=== PATIENT | male | born 1940 | race Caucasian/White ===

== ENCOUNTER 2021-12-06 05:36 | Day surgery (SDC) | payer OTHER, MEDICARE ==
[2021-12-04 09:16] VITALS: BMI 37.5
[~2021-12-06 05:36] MED LIST: ACETAMINOPHEN 325 MG TABLET (FP) PO PRN; CYCLOPENTOLATE HCL 1% OPHTH SOLN 2 ML BOTTLE OP SCH; KETOROLAC TROMETHAMINE 0.5% EYE DROP 1 DROP DROPS OP SCH; OFLOXACIN 0.3% OPHTHALMIC SOLUTION 5 ML BOTTLE OP SCH; PHENYLEPHRINE 2.5% OPHTH SOLN 15 ML BOTTLE OP SCH; TROPICAMIDE 1% OPHTH SOLN 15 ML BOTTLE OP SCH
[2021-12-06] MEDS ORDERED: TROPICAMIDE 1% OPHTH SOLN 15 ML BOTTLE ONE (06:20)
[2021-12-06] MEDS ORDERED: OFLOXACIN 0.3% OPHTHALMIC SOLUTION 5 ML BOTTLE ONE (06:20)
[2021-12-06] MEDS ORDERED: KETOROLAC TROMETHAMINE 0.5% EYE DROP 1 DROP DROPS ONE (06:20)
[2021-12-06] MEDS ORDERED: CYCLOPENTOLATE HCL 1% OPHTH SOLN 2 ML BOTTLE ONE (06:20)
[2021-12-06] MEDS ORDERED: PHENYLEPHRINE 2.5% OPTHALMIC DROP BOTTLE ONE (06:21)
[2021-12-06] MEDS ORDERED: CYCLOPENTOLATE HCL 1% OPHTH SOLN 2 ML BOTTLE OS ONE ×3 (06:35→06:55)
[2021-12-06] MEDS ORDERED: TROPICAMIDE 1% OPHTH SOLN 15 ML BOTTLE OS ONE ×3 (06:35→06:55)
[2021-12-06] MEDS ORDERED: KETOROLAC TROMETHAMINE 0.5% EYE DROP 1 DROP DROPS OS ONE ×3 (06:35→06:55)
[2021-12-06] MEDS ORDERED: OFLOXACIN 0.3% OPHTHALMIC SOLUTION 5 ML BOTTLE OS ONE ×3 (06:35→06:55)
[2021-12-06] MEDS ORDERED: PHENYLEPHRINE 2.5% OPHTH SOLN 15 ML BOTTLE OS ONE ×3 (06:35→06:55)
[2021-12-06] MEDS ORDERED: CHONDROITIN SU A/HYALUR SOD 1 KIT ONE (07:11)
[2021-12-06] MEDS ORDERED: EPINEPHrine/PF 1 MG/1 ML (1:1,000) AMPULE ONE (07:19)
[2021-12-06] MEDS ORDERED: VANCOMYCIN 500 MG VIAL (RESTRICTED TO ID ONLY) ONE (07:20)
[2021-12-06] MEDS ORDERED: LIDOCAINE HCL/PF 1% SDV 5ML VIAL ONE (07:20)
[2021-12-06] MEDS ORDERED: POVIDONE-IODINE 5% OPHTHALMIC PREP 30 ML SOLUTION ONE (07:21)
[2021-12-06] MEDS ORDERED: BSS (NA/CA/MG/K) BALANCED SALT SOLUTION OPHTH SOLN 15 ML BOTTLE ONE (07:21)
[2021-12-06] MEDS ORDERED: TETRACAINE 0.5% OPHTH SOLN 2 ML BOTTLE ONE (07:21)
[2021-12-06] MEDS ORDERED: MIDAZOLAM HCL 2 MG/2 ML SINGLE DOSE VIAL ONE (07:33)
[2021-12-06] MEDS ORDERED: TETRACAINE 0.5% OPHTH SOLN 2 ML BOTTLE OS ONE (08:06)
[2021-12-06] MEDS ORDERED: POVIDONE-IODINE 5% OPHTHALMIC PREP 30 ML SOLUTION OS ONE (08:07)
[2021-12-06] MEDS ORDERED: BSS (NA/CA/MG/K) BALANCED SALT SOLUTION OPHTH SOLN 15 ML BOTTLE OS ONE (08:13)
[2021-12-06] MEDS ORDERED: LIDOCAINE HCL 1% PRESERVATIVE FREE - 30ML VIAL IO ONE (08:20)
[2021-12-06] MEDS ORDERED: CHONDROITIN SU A/HYALUR SOD 1 KIT IO ONE (08:21)
[2021-12-06] MEDS ORDERED: EPINEPHrine/PF 1 MG/1 ML (1:1,000) AMPULE SQ ONE (08:23)
[2021-12-06 14:32] VITALS: TEMP 97
[2021-12-06 14:35] VITALS: BP 144/84; PULSE 65
== END 2021-12-06 09:51 | disposition home or self-care (01) ==
LOC: JASU-SURG 05:36
PROVIDERS: ATTEND Ophthalmology
PROC: 08RK3JZ Replacement of Left Lens with Synthetic Substitute, Percutaneous Approach (ICD-10-PCS; principal; 2021-12-06 08:00)
DX: H26.9 Unspecified cataract (principal)

== ENCOUNTER 2024-04-15 05:13 | Day surgery (SDC) | payer OTHER, MEDICARE ==
[2024-04-14 09:33] VITALS: BMI 40.1
[~2024-04-15 05:13] MED LIST changes: -KETOROLAC TROMETHAMINE 0.5% EYE DROP 1 DROP DROPS OP SCH; -OFLOXACIN 0.3% OPHTHALMIC SOLUTION 5 ML BOTTLE OP SCH; -PHENYLEPHRINE 2.5% OPHTH SOLN 15 ML BOTTLE OP SCH; -TROPICAMIDE 1% OPHTH SOLN 15 ML BOTTLE OP SCH
[2024-04-15] MEDS ORDERED: TETRACAINE 0.5% OPHTH SOLN 2 ML BOTTLE ONE (07:15)
[2024-04-15] MEDS ORDERED: LIDOCAINE HCL/PF 1% SDV 5ML VIAL ONE (07:15)
[2024-04-15] MEDS ORDERED: VANCOMYCIN 500 MG VIAL (RESTRICTED TO ID ONLY) ONE (07:15)
[2024-04-15] MEDS ORDERED: BSS (NA/CA/MG/K) BALANCED SALT SOLUTION OPHTH SOLN 15 ML BOTTLE ONE (07:15)
[2024-04-15] MEDS ORDERED: EPINEPHrine/PF 1 MG/1 ML (1:1,000) AMPULE ONE (07:15)
[2024-04-15] MEDS ORDERED: POVIDONE-IODINE 5% OPHTHALMIC PREP 30 ML SOLUTION ONE (07:16)
[2024-04-15] MEDS ORDERED: PHENYLEPHRINE 2.5% OPTHALMIC DROP 2ML BOTTLE ONE (08:12)
[2024-04-15] MEDS ORDERED: OFLOXACIN 0.3% OPHTHALMIC SOLUTION 5 ML BOTTLE ONE (08:13)
[2024-04-15] MEDS ORDERED: TROPICAMIDE 1% OPHTH SOLN 15 ML BOTTLE ONE (08:13)
[2024-04-15] MEDS ORDERED: KETOROLAC TROMETHAMINE 0.5% EYE DROP 1 DROP DROPS ONE (08:13)
[2024-04-15] MEDS ORDERED: CYCLOPENTOLATE HCL 1% OPHTH SOLN 2 ML BOTTLE ONE (08:13)
[2024-04-15] MEDS: OFLOXACIN 0.3% OPHTHALMIC SOLUTION 5 ML BOTTLE OP SCH (08:19)
[2024-04-15] MEDS: CYCLOPENTOLATE HCL 1% OPHTH SOLN 2 ML BOTTLE OP SCH (08:20)
[2024-04-15] MEDS: TROPICAMIDE 1% OPHTH SOLN 15 ML BOTTLE OP SCH (08:20)
[2024-04-15] MEDS: KETOROLAC TROMETHAMINE 0.5% EYE DROP 1 DROP DROPS OP SCH (08:20)
[2024-04-15] MEDS: PHENYLEPHRINE 2.5% OPHTH SOLN 15 ML BOTTLE OP SCH (08:20)
[2024-04-15 08:27] VITALS: RESP 18
[2024-04-15] MEDS ORDERED: MIDAZOLAM HCL 2 MG/2 ML SINGLE DOSE VIAL ONE (10:02)
[2024-04-15] MEDS: TETRACAINE 0.5% OPHTH SOLN 2 ML BOTTLE OD ONE ×2 (10:06)
[2024-04-15] MEDS: POVIDONE-IODINE 5% OPHTHALMIC PREP 30 ML SOLUTION OD ONE ×2 (10:08)
[2024-04-15] MEDS: BSS (NA/CA/MG/K) BALANCED SALT SOLUTION OPHTH SOLN 15 ML BOTTLE OD ONE ×2 (10:13)
[2024-04-15] MEDS: LIDOCAINE HCL 1% PRESERVATIVE FREE - 30ML VIAL IO ONE ×2 (10:13)
[2024-04-15] MEDS: CHONDROITIN SU A/HYALUR SOD 1 KIT IO ONE ×2 (10:16)
[2024-04-15] MEDS: EPINEPHrine 1:1,000 1,000 MCG/ML ML SQ ONE ×2 (10:27)
[2024-04-15 12:46] VITALS: BP 131/77; PULSE 71; TEMP 98.2
== END 2024-04-15 11:25 | disposition home or self-care (01) ==
LOC: JASU-SURG 05:13
PROVIDERS: ATTEND Ophthalmology
PROC: 08RJ3JZ Replacement of Right Lens with Synthetic Substitute, Percutaneous Approach (ICD-10-PCS; principal; 2024-04-15 10:00)
DX: H26.9 Unspecified cataract (principal)
CPT/HCPCS: V2632